=== PATIENT | female | born 1950 | race Caucasian/White ===

== ENCOUNTER → 2021-10-21 | Outpatient (CLI) | payer MEDICARE ==
[2021-10-21 16:24] LABS: Chol/HDL Ratio 2.57 Ratio; LDL Cholesterol,Calculated 101.1 mg/dL (0.0-131.0)
== END | disposition home or self-care (01) ==
LOC: LABWHC1 10:12
PROVIDERS: ATTEND Nurse Practitioner Gerontology
DX: Z01.810 Encounter for preprocedural cardiovascular examination (principal); Z13.220 Encounter for screening for lipoid disorders; R03.0 Elevated blood-pressure reading, without diagnosis of hypertension
CPT/HCPCS: 36415; 80061; 84443

== ENCOUNTER → 2021-10-21 | Outpatient (CLI) | payer MEDICARE ==
[2021-10-21 11:40] LABS: INR 0.9 (<1.2); Partial Thromboplastin Time 22.4 sec (22.0-30.0); Prothrombin Time 9.9 sec (9.0-12.0)
[2021-10-21 13:23] LABS: Appearance,Urine Cloudy (Clear); Bilirubin,Urine Negative (Negative); Blood,Urine Negative (Negative); Color,Urine Light Yellow; Glucose,Urine (UA) Negative (Negative); Ketones,Urine Negative (Negative); Leukocyte Esterase,Urine Negative (Negative); Nitrite,Urine Negative (Negative); Protein,Urine Negative (Negative); Specific Gravity,Urine 1.005 (1.001-1.035); Squamous Epithelial Cell,Urine <1 /hpf (0-4); Urobilinogen,Urine <2.0 mg/dL (<2.0)
[2021-10-21 16:08] LABS: Basophils # (A) 0.05 X 10*3/uL (0.00-0.10); Basophils % (A) 0.7 %; Eosinophils # (A) 0.03 X 10*3/uL (0.04-0.35); Eosinophils % (A) 0.4 %; HCT 44.2 % (37.2-46.3); HGB 14.1 g/dL (12.0-15.0); Immature Grans, Automated 0.3 %; Lymphocytes # (A) 1.86 X 10*3/uL (0.90-5.00); Lymphocytes % (A) 25.4 %; MCH 30.8 pg (27.0-32.0); MCHC 31.9 g/dL (32.0-37.0); MCV 96.5 fL (80.0-97.0); Mean Platelet Volume 11.5 fL (9.5-12.2); Monocytes # (A) 0.44 X 10*3/uL (0.20-1.00); NRBC Per 100 WBC 0 /100 WBCS (0.0-0.0); Neutrophils # (A) 4.93 X 10*3/uL (1.80-7.70); Neutrophils % (A) 67.2 %; Platelet Count 272 X 10*3/uL (140-440); RBC 4.58 X 10*6/uL (4.10-5.20); RDW 12.9 % (11.5-14.5); WBC 7.33 X 10*3/uL (4.50-10.00)
[2021-10-21 16:47] LABS: African American GFR (CKD) 105.7 (60.0-200.0); Albumin 4.2 g/dL (3.8-4.9); Albumin/Globulin Ratio 1.66 (1.60-3.17); Anion Gap 12.4 mmol/L (10.00-18.00); BUN/Creat Ratio 25.19 Ratio (12.00-20.00); Blood Urea Nitrogen 16.4 mg/dL (9.0-27.0); Calcium 9.1 mg/dL (8.7-10.3); Carbon Dioxide 24.2 mmol/L (20.0-27.5); Globulin 2.5 g/dL (1.6-3.3); Non-African American GFR(CKD) 91.2 (60.0-200.0); Total Bilirubin 0.5 mg/dL (0.30-1.20); Total Protein 6.8 g/dL (6.2-8.2)
== END | disposition home or self-care (01) ==
LOC: LABPAT 10:10
PROVIDERS: ATTEND Orthopaedic Surgery
DX: Z01.812 Encounter for preprocedural laboratory examination (principal); M16.12 Unilateral primary osteoarthritis, left hip
CPT/HCPCS: 80053; 81001; 85025; 85610; 85730; 87070

== ENCOUNTER 2021-11-02 05:43 | Day surgery (SDC) | payer MEDICARE ==
[2021-10-29 14:17] VITALS: BMI 29.4
[~2021-11-02 05:43] MED LIST: ACETAMINOPHEN TAB 500 MG TAB PO PRN; GABAPENTIN 300 MG CAP PO PRN; MELOXICAM 7.5 MG TAB PO PRN; TRANEXAMIC ACID 1,000 MG in SODIUM CHLORIDE 0.9% 100 ML IVPB PRN
[2021-11-02] MEDS ORDERED: MIDAZOLAM 2 MG/2 ML VIAL IV PRN (05:46)
[2021-11-02] MEDS ORDERED: LIDOCAINE 1% (10MG/ML) FOR IV START INTRADERMA PRN (05:46)
[2021-11-02] MEDS ORDERED: ONDANSETRON 4 MG/2 ML VIAL ONE (06:10)
[2021-11-02] MEDS: LACTATED RINGERS 1,000 ML IV SCH (06:25)
[2021-11-02] MEDS ORDERED: DEXAMETHASONE SOD PHOSPHATE 4 MG/ML 1 ML VIAL IV ONE (06:40)
[2021-11-02] MEDS ORDERED: MIDAZOLAM 2 MG/2 ML VIAL ONE (06:53)
[2021-11-02] MEDS ORDERED: SODIUM CHLORIDE 0.9% 100 ML BAG ONE (06:53)
[2021-11-02] MEDS ORDERED: LIDOCAINE 1% INJ 10MG/ML (20 ML MDV) ONE (06:53)
[2021-11-02] MEDS ORDERED: fentaNYL (PF) 50 MCG/ML 2 ML AMP ONE (06:53)
[2021-11-02] MEDS ORDERED: TRANEXAMIC ACID 1,000 MG/10 ML VIAL ONE (06:53)
[2021-11-02] MEDS ORDERED: SUCCINYLCHOLINE CHLORIDE 100 MG/5 ML SYR IV ONE (06:53)
[2021-11-02] MEDS ORDERED: PROPOFOL 10 MG/ML 20 ML VIAL IV ONE (06:53)
[2021-11-02] MEDS ORDERED: ceFAZolin 1,000 MG in SODIUM CHLORIDE 0.9% 1,000 ML IRRIGATION ONE (07:23)
[2021-11-02] MEDS ORDERED: ROPIVACAINE 5 MG/ML 30 ML VIAL MISCELLANE ONE (07:54)
[2021-11-02] MEDS ORDERED: LACTATED RINGERS 1,000 ML IV ONE (08:22)
--- NOTE | 2021-11-02 08:26 | P.OP ---
Date of Procedure: 11/02/21 Preoperative Diagnosis: Severe osteoarthritis left hip Postoperative Diagnosis: Severe osteoarthritis left hip Procedure(s) Performed: Left total hip arthroplasty with a direct anterior approach Implants: [employer] Polarstem standard size 5 collared [employer] R3, 3 hole hemispherical acetabular shell, 52 mm [employer] Reflection 6.5 mm cancellus screw, 20 mm 2 [employer] R3, XLPE 20 acetabular liner [employer] Oxinium femoral head 36 m, +8 All components were press-fit. The articulation is Oxinium on polyethylene. Anesthesia: GETA Surgeon: Aguilar Gonzalez Manager Route #1: Meeta Negron Estimated Blood Loss (ml): 300 Pathology: other (Femoral head) Condition: stable Disposition: PACU Indications for Procedure: After failure of conservative treatment we discussed the surgical and nonsu rgical treatment options at length. Patient wishes to proceed with a total hip arthroplasty with a direct anterior approach. Complications specific to this procedure were discussed at length, including but not limited to infection, leg length discrepancy, dislocation, nerve injury, and fracture. Covid-19 was also discussed at length with the patient, and they are aware of the current policies and procedures. The patient was given the option of delaying surgery, but they elect to proceed knowing these risks. Patient is aware of all these complications and informed consent was obtained Operative Findings: The operative findings are consistent with severe osteoarthritis of the right hip Description of Procedure: Patient was seen and evaluated in the preoperative area and the consent was reviewed. The operative site was marked with a skin marker. The patient was then brought to the operating room and given preoperative antibiotics intravenously. 1 g of Tranexamic acid was also given intravenously. A general anesthetic was administered by the anesthesia department. The patient was then placed on the [place] table with the bony prominences well-padded. The hip area was then prepped with a ChloraPrep solution and draped in the usual sterile fashion. A universal timeout was then performed, which confirmed the patient's name, surgical site, ALLERGIES, and procedure being performed on the consent. Next the incision site was located at 1 cm distal and 2 cm lateral to the anterior superior iliac spine. The skin and subcutaneous tissues were sharply incised. Incision was carefully dissected down to the fascia overlying the tensor fascia chapincito muscle. This fascia was then incised in line with the incision. Care was taken to stay laterally in order to avoid injuring the lateral femoral cutaneous nerve. Next, using blunt finger dissection, the tensor fascia chapincito muscle was dissected off its investing fascia. The muscle was then carefully retracted laterally with a cobra retractor over the lateral neck of the femur. Next, the circumflex vessels were identified and cauterized using the AquaMantis device. The anterior hip capsule was then exposed. The capsule was then opened and an inverted T fashion. Cobra retractors were then placed intracapsularly. The retractors were maintained intracapsular throughout the procedure. The proximal femur was then visualized. Fluoroscopic x-rays were then taken in order to evaluate the preoperative leg lengths. A small amount of traction was placed on the leg. The femoral neck was then osteotomized at the appropriate level above the lesser trochanter. A small wedge of bone was then removed from the remaining femoral head. Next, using a corkscrew the femoral head was removed from the acetabulum. On gross visual inspection, the femoral head had complete loss of articular cartilage and multiple periarticular osteophytes. The femoral head was then m easured. Attention was then turned to the acetabulum. The acetabulum was exposed and any remaining labrum was excised. Sequential reaming of the acetabulum was performed using fluoroscopic guidance until there was a good bed of bleeding cancellus bone. When the appropriate size was reached, a trial was then placed. The position and fit of the trial was checked with fluoroscopy. The trial was then removed. Then, using fluoroscopic guidance, the final implant was impacted at 20 of anteversion and 40 of abduction, and fully seated in the acetabulum. 2 screws were then placed in the acetabulum. Again fluoroscopy was used to check position of the screws. Next, the liner was then impacted, with a 20 elevated liner located in the anterior superior quadrant. Component locking was confirmed. Attention was then directed to the femur. With the aid of the [place] table, the femur was externally rotated to approximately 130, extended, and adducted under the opposite leg. A side hook was then placed under the proximal femur, and the side hook elevator was used to elevate the proximal femur while releasing the capsule. Retractors were then placed. A capsular release was performed, as well as a release of the conjoined tendon, which afforded excellent visualization of the proximal femur. Next, a box osteotome was used to lateralize the proximal femur. A battery hand was then used to locate the femoral canal. Sequential broaching was then performed with appropriate size which afforded excellent fixation in the proximal femur. A trial was then placed with appropriate head and neck, and the hip was gently reduced with the aid of the [place] table. Fluoroscopy was then used to check position of the components, as well as to ensure equal leg lengths. The hip was then gently dislocated and the trials were then removed. Final implants were then impacted and the hip was again reduced. Final fluoroscopic x-rays confirmed that the components were in anatomic position, as well as equal leg lengths. The hip was also taken through range of motion, and found to be stable. The hip was then copiously irrigated with antibiotic solution with pulsatile lavage. The hip was then irrigated with Irrisept solution. The soft tissues were then injected with a ropivacaine solution. A second dose of 1 g of Tranexamic acid was also given intravenously. The fascia was then closed with 2-0 strata fix suture. The subcutaneous tissue was closed with 3-0 Vicryl. The subcuticular tissue was closed with 3-0 strata fix suture. The skin was then closed with Exofin skin glue. After the glue and dried, and Optifoam silver impregnated dressing was applied. The patient was then transferred to the recovery room in stable condition. The broker assistant JOELLE Diane was required due to the complexity of surgery, and the need for skilled office clerk assistant for positioning, draping, exposure, retraction, and closure of the wound.
[2021-11-02] MEDS ORDERED: HYDROmorphone 0.2 MG/1 ML SYRINGE IVP PRN (08:48)
[2021-11-02] MEDS ORDERED: ONDANSETRON 4 MG/2 ML VIAL IVP PRN (08:48)
[2021-11-02] MEDS ORDERED: HYDROmorphone 1 MG/ML 1 ML SYRINGE IVP PRN ×2 (08:48)
[2021-11-02] MEDS ORDERED: NALOXONE 0.4 MG/ML 1 ML VIAL IV PRN (08:48)
[2021-11-02] MEDS: HYDROmorphone 0.5 MG/0.5 ML SYRINGE IVP PRN ×2 (08:50→09:02)
--- NOTE | 2021-11-02 09:20 | XR ---
Left hip HISTORY: Status post left hip arthroplasty Single frontal view of the left hip Patient is status post left hip arthroplasty. There is anatomic alignment. Lucency is present in the soft tissues consistent with postop state. IMPRESSION: Orthopedic follow-up.
--- NOTE | 2021-11-02 09:38 | FL ---
Fluoroscopy HISTORY: Anterior hip replacement 64 seconds fluoroscopy time supplied to the referring clinician. 3 intraoperative C-arm images docum ent the procedure. See dictated report from orthopedic surgery.
--- NOTE | 2021-11-02 10:49 | XR ---
Fluoroscopy HISTORY: Hip replacement 64 seconds fluoroscopy time supplied to the referring clinician. 3 intraoperative C-arm images docu ment the procedure. See dictated report from orthopedic surgery.
[2021-11-02] MEDS: HYDROcodone/APAP 7.5-325MG 1 EACH TAB PO PRN ×3 (11:23→22:26)
[2021-11-02] MEDS ORDERED: SENNOSIDES 8.6 MG TAB PO PRN (16:50)
[2021-11-02] MEDS: SODIUM CHLORIDE 0.9% 1,000 ML IV SCH (17:11)
[2021-11-02] MEDS: ASPIRIN 325 MG TAB PO SCH (22:24)
[2021-11-03] MEDS: SODIUM CHLORIDE 0.9% 1,000 ML IV SCH (02:52)
[2021-11-03 04:27] VITALS: PULSE 78
[2021-11-03] MEDS: HYDROcodone/APAP 7.5-325MG 1 EACH TAB PO PRN (05:16)
[2021-11-03] MEDS: LACTATED RINGERS 1,000 ML IV SCH (06:59)
[2021-11-03] MEDS: ASPIRIN 325 MG TAB PO SCH (07:48)
[2021-11-03 08:07] VITALS: BP 111/66; RESP 17; TEMP 99.4
--- NOTE | 2021-11-03 09:02 | P.DS ---
Providers Expected date of discharge: 11/03/21 Attending physician: Aguilar Gonzalez Consults: 11/02/21 15:21 Consult Physician Routine Consulting Provider: Nik Samano Reason/Comments: medical management Do you want consulting provider notified?: Yes Primary care physician: Stated None - Discharge Diagnosis(es) (1) Osteoarthritis of left hip Current Visit: Yes Status: Acute (2) S/P total left hip arthroplasty Current Visit: Yes Status: Acute Hospital Course: This is a 70-year-old female with known history of degenerative arthritis of the left hip. The patient presented for evaluation as an outpatient. After discussion and consideration patient elects to proceed with total hip arthroplasty. The patient is seen preoperatively by Dr. Gonzalez and medically cleared for surgery by their primary care physician. Patient is admitted to [facility] on 11/02/2021 for total hip arthroplasty. The procedure is performed without complication or sequelae. The patient is doing well postoperatively. Labs and vital signs are stable on day of discharge. On day of discharge patient's hip incision is healing well. There is minimal erythema. There is no drainage noted at this time. There is minimal soft tis maxx swelling to the hip and thigh. Patient has full foot and ankle motion without difficulty or pain. Calf is soft and nontender to palpation. Neurovascular status to the left lower extremity is intact. Patient is discharged home in good condition. Opioid start talking form is reviewed and signed. Please see med rec for accurate list of home medications. Plan - Discharge Summary Discharge Rx Participant: Yes New Discharge Prescriptions: New Sennosides [Senokot] 2 tab PO DAILY PRN #60 tablet PRN Reason: Constipation Aspirin 325 mg PO BID #60 tab HYDROcodone/APAP 7.5-325MG [[place] 7.5-325] 1 - 2 tab PO Q6H PRN #32 tab PRN Reason: Pain Ondansetron Odt [Zofran Odt] 1 tab PO Q8HR PRN #10 tab PRN Reason: Nausea No Action L.acidoph,Paracasei, B.lactis [Probiotic] 1 each PO DAILY Cholecalciferol [Vitamin D3 (25 Mcg = 1000 Iu)] 25 mcg PO DAILY amLODIPine [Norvasc] 5 mg PO DAILY lisinopriL [Zestril] 20 mg PO PC-LUNCH Calcium/Magnesium/Zinc [Zczgmey-Domjwmxnt-Ixdz Tablet] 1 each PO DAILY Acetaminophen [Tylenol Arthritis] 650 mg PO Q6H PRN PRN Reason: Pain Discharge Medication List Acetaminophen [Tylenol Arthritis] 650 mg PO Q6H PRN 10/29/21 [History] Calcium/Magnesium/Zinc [Cmmbxtl-Kidhpjtzb-Oxca Tablet] 1 each PO DAILY 10/29/21 [History] Cholecalciferol [Vitamin D3 (25 Mcg = 1000 Iu)] 25 mcg PO DAILY 10/29/21 [History] L.acidoph,Paracasei, B.lactis [Probiotic] 1 each PO DAILY 10/29/21 [History] lisinopriL [Zestril] 20 mg PO PC-LUNCH 10/29/21 [History] Aspirin 325 mg PO BID #60 tab 11/02/21 [Rx] HYDROcodone/APAP 7.5-325MG [[place] 7.5-325] 1 - 2 tab PO Q6H PRN #32 tab 11/02/21 [Rx] Ondansetron Odt [Zofran Odt] 1 tab PO Q8HR PRN #10 tab 11/02/21 [Rx] Sennosides [Senokot] 2 tab PO DAILY PRN #60 tablet 11/02/21 [Rx] amLODIPine [Norvasc] 5 mg PO DAILY 11/02/21 [History] Follow up Appointment(s)/Referral(s): [facility], [NON-STAFF] - ([facility] will call you to schedule your in home physical therapy. ) Aguilar Gonzalez DO [Doctor of Osteopathic Medicine] - 11/16/21 1:45 pm Patient Instructions/Handouts: *Surgery [facility] - (Anesthesia) Discharge Instructions Outpatient Surgery, How to Use an Incentive Spirometer (DC), Anterior Hip Replacement (DC) Activity/Diet/Wound Care/Special Instructions: Weightbearing as tolerated with walker. Leave dressing intact. Dressing may be removed by home care nurse or by patient in 7 days. Then change dressing twice daily until follow up. May shower with initial dressing intact and after removal. If dressing become saturated, please remove. Please take aspirin 325mg twice daily for 30 days to prevent blood clots. Recommend use of compression stockings daily until follow up to help prevent swelling and blood clots. May remove at night before sleeping. [facility] with [facility] and call with any questions or concerns, . Discharge Disposition: HOME WITH HOME HEALTH SERVICES
[2021-11-03 09:12] LABS: Basophils # (A) 0.01 X 10*3/uL (0.00-0.10); Basophils % (A) 0.1 %; Eosinophils # (A) 0 X 10*3/uL (0.04-0.35); Eosinophils % (A) 0 %; HGB 10.9 g/dL (12.0-15.0); Immature Grans, Automated 0.4 %; Lymphocytes # (A) 1.73 X 10*3/uL (0.90-5.00); Lymphocytes % (A) 21.1 %; MCH 30.9 pg (27.0-32.0); MCHC 32.1 g/dL (32.0-37.0); MCV 96.3 fL (80.0-97.0); Mean Platelet Volume 11.4 fL (9.5-12.2); Monocytes # (A) 0.98 X 10*3/uL (0.20-1.00); NRBC Per 100 WBC 0 /100 WBCS (0.0-0.0); Neutrophils # (A) 5.45 X 10*3/uL (1.80-7.70); Neutrophils % (A) 66.4 %; Platelet Count 213 X 10*3/uL (140-440); RBC 3.53 X 10*6/uL (4.10-5.20)
== END 2021-11-03 11:49 | disposition home health service (06) ==
LOC: OR 05:43 → 4SSUR 08:35 → OR 11-03 11:49
PROVIDERS: ATTEND Orthopaedic Surgery
DX: M16.12 Unilateral primary osteoarthritis, left hip (principal); M25.752 Osteophyte, left hip; Z91.011 Allergy to milk products; Z82.49 Family history of ischemic heart disease and other diseases of the circulatory system; Z87.891 Personal history of nicotine dependence; Z98.51 Tubal ligation status; Z79.899 Other long term (current) drug therapy; Z88.0 Allergy status to penicillin
CPT/HCPCS: 97116; 97530; 97161; 97535; 97165; 86900; 86901; 85025; 86850; 88300; 73501; 73502; 27130; C1776; J2250; J1100; J0690 ×2; J2405; J2001; J3010; J2795; J0330; J2704; J1170; J1790

== ENCOUNTER → 2023-02-07 | Outpatient (CLI) | payer MEDICARE ==
--- NOTE | 2023-02-07 21:44 | CT ---
EXAMINATION TYPE: CT pelvis wo con CT DLP: 493.80 mGycm, Automated exposure control for dose reduction was used. DATE OF EXAM: 02/07/2023 5:59 PM COMPARISON: Left hip radiograph 11/02/2021 CLINICAL INDICATION:Female, 72 years old with history of M25.551; TECHNIQUE: Standard CT of the pelvis without IV. Oral contrast was administered. Lack of IV contras t limits evaluation of solid and hollow organ viscera. Coronal and sagittal reformats were performed. 3-D reformats were created on a separate workstation. FINDINGS: Visualized portion of the left kidney is unremarkable. The visualized gallbladder fundus is unremarka ble. Visualized portions of the inferior right hepatic lobe is unremarkable. Enteric contrast reaches the ascending colon. No focal bowel wall thickening or surrounding inflammatory changes. Few scatter ed colonic diverticula without evidence for acute diverticulitis. The uterus appears unremarkable. Le ft ovarian 2.0 cm cystic lesion. The urinary bladder is unremarkable. Postsurgical changes from left total hip arthroplasty. This creates streak artifact which limits eval uation. Acute nondisplaced left superior pubic ramus fracture. Acute nondisplaced right superior felicita sacrum fracture near the SI joint (series 7, image 22). Nonspecific sclerotic focus within the left h emisacrum possibly representing a benign bone island. Degenerative changes of the visualized lumbar s pine most prominent at L5-S1 with disc space narrowing, endplate sclerosis, and osteophyte formation. IMPRESSION: 1. Acute nondisplaced right hemisacral fracture. 2. Acute nondisplaced left superior ramus fracture. 3. Indeterminate left ovarian 2 cm cystic lesion. Further evaluation with pelvic ultrasound is recomm ended.
== END | disposition home or self-care (01) ==
LOC: RADCTMAIN 15:33
PROVIDERS: ATTEND Orthopaedic Surgery
DX: S32.110A Nondisplaced Zone I fracture of sacrum, initial encounter for closed fracture (principal); M25.551 Pain in right hip; S32.591A Other specified fracture of right pubis, initial encounter for closed fracture
CPT/HCPCS: 72192

== ENCOUNTER → 2023-09-01 | Outpatient (CLI) | payer MEDICARE ==
--- NOTE | 2023-09-02 21:47 | US ---
EXAMINATION TYPE: US transvaginal DATE OF EXAM: 09/01/2023 COMPARISON: CT 02/07/2023. CLINICAL INDICATION: Female, 72 years old with history of N83.[address] TECHNIQUE: Transvaginal sonographic images were ordered by doctor Date of LMP: about 20+ years ago EXAM MEASUREMENTS: Uterus: 6.3 x 2.9 x 4.2 cm Endometrial Stripe: 0.6 cm Right Ovary: 1.4 x 1.9 x 1.7 cm Left Ovary: 2.2 x 1.4 x 1.3 cm 1. Uterus: Anteverted Multiple cystic areas KAREN 2. Endometrium: Fluid within 3. Right Ovary: wnl 4. Left Ovary: wnl 5. Bilateral Adnexa: wnl 6. Posterior cul-de-sac: wnl IMPRESSION: 1. Right ovarian cyst not visualized by advertising solicitor. 2. Endometrial stripe at the upper limits of normal.
== END | disposition home or self-care (01) ==
LOC: RADUSWWP 13:49
PROVIDERS: ATTEND Internal Medicine Geriatric Medicine
DX: N83.201 Unspecified ovarian cyst, right side (principal)
CPT/HCPCS: 76830

== ENCOUNTER → 2024-07-10 | Outpatient (CLI) | payer MEDICARE ==
--- NOTE | 2024-07-15 19:12 | MM ---
Reason for Exam: Screening (asymptomatic). Last mammogram was performed 1 year(s) and 9 month(s) ago. Patient History: Menarche at age 15. First Full-Term at age 24. Postmenopausal. Benign Cyst Aspiration on the left side. Risk Values: Conchita 5 year model risk: 1.6%. NCI Lifetime model risk: 4.3%. Prior Study Comparison: 09/30/2011 Bilateral Screening Mammogram, [facility]. 10/26/2022 Bilateral MG 3D screening mammo w/cad, [facility]. 10/29/2022 Right MG 3D work up w/cad RT, [facility]. Tissue Density: The breasts are heterogeneously dense, which may obscure small masses. Findings: Analyzed By CAD. The pattern is symmetrical. The pattern is stable. Benign vascular calcifications present bilaterally. Coarse calcifications within the right breast. No suspicious groups of microcalcifications, spiculated or lobular masses, architectural distortion or other secondary signs of malignancy are mammographically apparent. Overall Assessment: Benign, BI-RAD 2 Management: Screening Mammogram of both breasts in 1 year. A negative mammogram report should not preclude additional follow up of suspicious palpable abnormalities. Patient should continue monthly self breast exam. A clinical breast exam by your physician is recommended on an annual basis and results should be correlated with mammographic findings. Note on Conchita scores and lifetime risk: 1. A Conchita score greater than 3% is considered moderate risk. If this is the case, consider specialist referral to assess eligibility for a risk reducing agent. 2. If overall lifetime risk for the development of breast cancer is 20% or higher, the patient may qualify for future screening with alternating mammogram and breast MRI. [facility], , 07/15/2024 7:09 PM. Electronically signed and approved by: Javi Penn D.O. Radiologis
== END | disposition home or self-care (01) ==
LOC: RADMAMWWP 09:40
PROVIDERS: ATTEND Internal Medicine Geriatric Medicine
DX: Z12.31 Encounter for screening mammogram for malignant neoplasm of breast (principal); R92.333 Mammographic heterogeneous density, bilateral breasts; Z78.0 Asymptomatic menopausal state
CPT/HCPCS: 77063; 77067

== ENCOUNTER → 2024-08-10 | Outpatient (CLI) | payer MEDICARE ==
--- NOTE | 2024-08-10 12:38 | XR ---
EXAMINATION TYPE: XR lumbar spine 2 or 3V DATE OF EXAM: 08/10/2024 12:26 PM COMPARISON: None CLINICAL INDICATION: Female, 73 years old with history of M54.9 DORSALGIA, UNSPEC M25.551 PAIN IN RIG HT HIP; TECHNIQUE: XR lumbar spine 2 or 3V - Frontal, lateral and coned in L5-S1 lateral views of the spine. FINDINGS: No evidence of any acute osseous pathology. Multilevel superior and inferior endplate defor mities throughout the spine. Evaluation limited due to overlapping bowel. There is normal alignment o f the lumbar vertebral bodies. Scattered disc space narrowing. Multilevel marginal osteophyte formati on throughout the visualized spine. There is facet joint arthropathy throughout the spine. Scattered at least mild neural foraminal stenosis. Arthroplasty of the hip partially visualized. IMPRESSION: 1. No acute fracture. 2. Moderate multilevel disc degeneration. There is concern for spine fracture consider MRI to evaluat e for bony edema given deformities of the endplates at multiple levels which is obscured by bowel gas . [facility], , 08/10/2024 12:36 PM
--- NOTE | 2024-08-10 12:40 | XR ---
EXAMINATION TYPE: XR Hip Complete RT DATE OF EXAM: 08/10/2024 12:26 PM COMPARISON: None CLINICAL INDICATION: Female, 73 years old with history of M54.9 DORSALGIA, UNSPEC M25.551 PAIN IN RIG HT HIP; PHH, pain TECHNIQUE: XR Hip Complete RT; Frontal and lateral views FINDINGS: No evidence for acute process, joint dislocation or significant soft tissue swelling. Osteo phyte formation of the superior acetabulum of the hip. There is mild joint space narrowing. IMPRESSION: 1. No evidence for acute process. 2. Mild to moderate hip osteoarthrosis. [facility], , 08/10/2024 12:37 PM
== END | disposition home or self-care (01) ==
LOC: RADXRMAIN 12:07
PROVIDERS: ATTEND Internal Medicine Geriatric Medicine
DX: M51.360 Other intervertebral disc degeneration, lumbar region with discogenic back pain only (principal); M16.11 Unilateral primary osteoarthritis, right hip
CPT/HCPCS: 72100; 73502

== ENCOUNTER → 2024-08-17 | Outpatient (CLI) | payer MEDICARE ==
--- NOTE | 2024-08-17 17:49 | MR ---
EXAMINATION TYPE: MR lumbar spine wo con DATE OF EXAM: 08/17/2024 2:05 PM COMPARISON: None. CLINICAL INDICATION: Female, 73 years old with history of M54.9 DORSALGIA, UNSPECIFIED, Right side pa in in buttocks, front thigh and calf TECHNIQUE: Multiplanar, multisequence images of the lumbar spine were acquired. IV Contrast: mL (None, if empty) FINDINGS: Cord ends at the L1-L2 level. Cysts are present posteriorly is too low L5-S1: No focal disc herniation or significant disc bulge. Mild facet hypertrophy is present on the l eft no spinal canal stenosis present. Right foramen is patent. There is moderate to severe left petra inal stenosis. Correlate for left S1 radicular symptoms L4-L5: Mild facet hypertrophy is present with ligamentum flavum laxity produces mild posterior latera l thecal sac compression. No AP spinal canal stenosis is present. Neural foramen are patent. No signi ficant disc bulge evident. There is disc space narrowing present L3-L4: Minimal disc bulge present with anterior thecal sac flattening. No AP spinal canal stenosis is present. Foramina are patent . Facet hypertrophy is present with minimal posterior lateral thecal s ac compression from ligamentum flavum laxity L2-L3: There is narrowing of disc height. No significant thecal sac compression is evident. Facet hyp ertrophy is present. Neural foramen are patent. L1-L2: Broad base central disc bulge is present with mild subligamentous disc herniation posterior to the L2 level. Mild anterior thecal sac compression is present. No spinal canal stenosis. Facet hyper trophy and ligamentum flavum laxity is present with posterior lateral thecal sac compression. Neural foramen are patent. T12-L1: Superior endplate compression or Schmorl's node is present at L1. Disc height appears preserv ed. No significant disc bulge no spinal canal stenosis. Mild facet hypertrophy. T11-T12: Schmorl's node is evident in the sagittal plane. Axial images do not extend to this level. IMPRESSION: 1. Disc space narrowing present at L2-3 and L4-5. 2. Minimal disc bulging L3-4 with mild anterior thecal sac flattening. 3. Small broad-based central disc herniation with subligamentous extension at L1-L2. 4. Possible old Schmorl's node or superior endplate compression deformity of L1. No posterior wall di splacement evident. 5. Moderate to severe left foraminal stenosis L5-S1 [facility], , 08/17/2024 5:46 PM
== END | disposition home or self-care (01) ==
LOC: RADMRIMAIN 12:35
PROVIDERS: ATTEND Internal Medicine Geriatric Medicine
DX: M48.061 Spinal stenosis, lumbar region without neurogenic claudication (principal); M51.369 Other intervertebral disc degeneration, lumbar region without mention of lumbar back pain or lower extremity pain; M51.26 Other intervertebral disc displacement, lumbar region
CPT/HCPCS: 72148